=== PATIENT | female | born 1985 | race African-American/Black ===

== ENCOUNTER → 2016-12-27 | Outpatient (CLI) | payer OTHER ==
--- NOTE | ~2016-12-27 | US6 ---
[facility] A Service of [facility] RADIOLOGY TEXT RESULTS PATIENT: ELVA REAVES LOCATION: [facility] : 89 UNIT #: [id number] AGE: [address]: Danilo Mariano MD SEX: F ORDER DR: [id number] [facility] [address] [place], [place] [address] [id number] O MR#: [id number] Acc #: [id number] NAME: ELVA REAVES : 1985 SEX: F STUDY DATE/TIME: 12/27/2016 11:26 UNIT: [facility] ROOM: STUDY DESCRIPTION: US Abdominal Limited Attending Physician: Danilo Mariano M.D. Referring Physician: Danilo Mariano M.D. Ordering Physician: Danilo Mariano M.D. Primary Care Physician: Susan Beltre A.P.R.N. MEDICAL IMAGING REPORT This report is preliminary unless electronic signature is present EXAM Right upper quadrant abdominal ultrasound INDICATIONS Right upper quadrant abdominal pain off and on for the past 9 years. TECHNIQUE Miller-scale and Doppler imaging right upper quadrant of the abdomen. COMPARISON STUDIES None. FINDINGS Visualized portions of the pancreas are unremarkable. Liver measures 17 cm. No liver mass on submitted images. Right kidney measures 10.9 cm. Unremarkable gallbladder. Common duct measures 3 mm. IMPRESSION Negative right upper quadrant abdominal ultrasound. Dictated by... Harry Taylor M.D. THIS IS AN ELECTRONICALLY VERIFIED REPORT Harry Taylor M.D. at 12/28/2016 8:04 AM EED/becki TD: 12/27/2016 15:46 JOB #: [id number] MEDICAL IMAGING REPORT Page 1 of 1 COPY
[2016-12-27 11:22] LABS: HEMATOCRIT 43.9 % (35.0-45.0); MEAN CORPUSCULAR HEMOGLOBIN 28.2 PG (28-34); MEAN PLATELET VOLUME 8.1 FL (6.5-11.5); RED BLOOD COUNT 4.99 X10e (3.90-5.30); RED CELL DISTRIBUTION WIDTH 14.1 % (11.0-15.5); WHITE BLOOD COUNT 4.8 X10e3 (4.0-10.5)
[2016-12-27 12:16] LABS: ALBUMIN SERUM 4.5 g/dL (3.5-5.0); BILIRUBIN,TOTAL 0.7 mg/dL (0.2-2.0); BUN/CREATININE RATIO 16.66; CALCIUM SERUM 11.8 mg/dL (8.4-10.2); CREATININE SERUM 0.6 mg/dL (0.6-1.4); GLOM FILT RATE Estimated 142.8 mL/min (>60); POTASSIUM 4.2 mmol/L (3.5-5.1); PROTEIN TOTAL SERUM 7.4 g/dL (6.0-8.3)
== END | disposition home or self-care (01) ==
LOC: CGUS 10:30
PROVIDERS: Internal Medicine
DX: R10.9 Unspecified abdominal pain (principal)
CPT/HCPCS: 36415; 76705; 80053; 82728; 83540; 84443; 84466; 85027